=== PATIENT | male | born 2000 | race Caucasian/White ===

== ENCOUNTER 2020-10-26 16:02 | Emergency (ER) | payer SELFPAY ==
[~2020-10-26] VITALS: Ht 172.7 cm; Wt 68.0 kg
[2020-10-26] MEDS ORDERED: FAMOTIDINE 20 MG/2 ML VIAL IV STA (16:20)
[2020-10-26] MEDS ORDERED: SODIUM CHLORIDE 0.9% 1000ML 2,040 ML IV SCH (16:30)
[2020-10-26] MEDS ORDERED: METHYLPREDNISOLONE SOD SUCC 125 MG/2ML VIAL IV ONE (16:30)
[2020-10-26] MEDS ORDERED: DIPHENHYDRAMINE HCL INJ 50 MG/ML VIAL IV ONE (16:45)
== END 2020-10-26 21:42 | disposition home or self-care (01) ==
LOC: ER 20:00
DX: L50.9 Urticaria, unspecified (principal); T78.40XA Allergy, unspecified, initial encounter
CPT/HCPCS: 99283; J1200; J2930; J7030